=== PATIENT | male | born 1950 | race Caucasian/White ===

== ENCOUNTER 2019-08-07 05:14 | Inpatient (IN) | payer MEDICARE ==
[~2019-08-07] VITALS: Ht 162.6 cm; Wt 83.6 kg
[2019-08-07] MEDS ORDERED: ASPI-496 PO (06:07)
[2019-08-07] MEDS ORDERED: LISI-167 PO (06:07)
[2019-08-07] MEDS ORDERED: ATOR40TA78 PO (06:07)
[2019-08-07] MEDS ORDERED: GABA600T7 PO (06:07)
[2019-08-07] MEDS ORDERED: DIAZ10TA4 PO (06:07)
[2019-08-07] MEDS ORDERED: LACTATED RINGERS 1,000 ML IV SCH (06:10)
[2019-08-07] MEDS ORDERED: NITR0.3T5 SL (06:12)
[2019-08-07] MEDS ORDERED: BUPIVACAINE/EPI 0.5% 1:200K ONE (06:34)
[2019-08-07] MEDS ORDERED: THROMBIN 5,000 UNIT VIAL TP ONE (06:35)
[2019-08-07] MEDS ORDERED: BACITRACIN 50,000 UNIT ONE (06:35)
[2019-08-07] MEDS ORDERED: BACITRACIN ZINC OINT 500U/GM, 0.9 GM ONE (06:35)
[2019-08-07 06:42] VITALS: BP 118/76
[2019-08-07] MEDS ORDERED: CYCL-259 PO (07:05)
[2019-08-07] MEDS ORDERED: TAMS-11 PO (07:05)
[2019-08-07] MEDS ORDERED: SILD20TA PO (07:05)
[2019-08-07] MEDS ORDERED: FINA5TAB4 PO (07:05)
[2019-08-07] MEDS ORDERED: FENTANYL PF 250 MCG/5ML ONE (07:08)
[2019-08-07] MEDS ORDERED: MIDAZOLAM 1 MG/ML, 2ML ONE (07:08)
[2019-08-07] MEDS ORDERED: PROPOFOL 10 MG/ML, 20ML ONE ×2 (07:08→09:48)
[2019-08-07] MEDS ORDERED: LIDOCAINE-MPF 2% ,5ML ONE (07:09)
[2019-08-07] MEDS ORDERED: SUCCINYLCHOLINE 20 MG/ML, 10ML ONE (07:09)
[2019-08-07] MEDS ORDERED: ROCURONIUM 10MG/ML,5ML ONE (07:09)
[2019-08-07] MEDS ORDERED: ONDANSETRON 2MG/ML, 2ML ONE (07:09)
[2019-08-07] MEDS ORDERED: CEFAZOLIN 1,000 MG ONE (07:09)
[2019-08-07] MEDS ORDERED: DEXAMETHASONE 4 MG/ML, 1ML ONE ×2 (07:09)
[2019-08-07] MEDS ORDERED: PHENYLEPHRINE 10 MG/ML ONE (07:09)
[2019-08-07] MEDS ORDERED: PROPOFOL 50 ML ONE ×3 (07:11→08:56)
[2019-08-07] MEDS ORDERED: KETAMINE 10 MG/ML, 20ML ONE (07:28)
[2019-08-07] MEDS ORDERED: ACETAMINOPHEN 500 MG TABLET PO ONE (07:30)
[2019-08-07] MEDS ORDERED: OXYcodone IR 5MG TABLET PO ONE (07:30)
[2019-08-07] MEDS ORDERED: GABAPENTIN 300 MG CAPSULE PO ONE (07:30)
[2019-08-07] MEDS ORDERED: VANCOMYCIN 1,000 MG ONE (08:26)
[2019-08-07] MEDS ORDERED: FENTANYL PF 100 MCG/2ML ONE (10:46)
[2019-08-07] MEDS ORDERED: OXYcodone 5 MG/5 ML ORAL.SOL UDC ONE ×2 (10:46→11:33)
[2019-08-07] MEDS: OXYcodone 5 MG/5 ML ORAL.SOL UDC PO PRN ×2 (10:48→11:34)
[2019-08-07] MEDS: FENTANYL PF 100 MCG/2ML IV PRN ×2 (10:50→10:57)
[2019-08-07] MEDS ORDERED: LORazepam 2 MG/ML, 1ML IVPush PRN (11:00)
[2019-08-07] MEDS ORDERED: METOCLOPRAMIDE 5 MG/ML, 2ML IV PRN (11:00)
[2019-08-07] MEDS ORDERED: LABETALOL 5MG/ML, 20ML IV PRN (11:00)
[2019-08-07] MEDS ORDERED: ONDANSETRON 2MG/ML, 2ML IV PRN ×2 (11:00→13:00)
[2019-08-07] MEDS ORDERED: MEPERIDINE/PF 25MG/ML,1ML IVPush PRN (11:00)
[2019-08-07] MEDS ORDERED: hydrALAzine 20 MG/ML, 1ML IV PRN (11:00)
[2019-08-07] MEDS ORDERED: HYDROmorphone 2 MG/ML, 1ML IVPush PRN (11:00)
[2019-08-07] MEDS ORDERED: METHOCARBAMOL 1,000 MG in DEXTROSE 5% 100 ML IV ONE (11:00)
[2019-08-07] MEDS ORDERED: METOCLOPRAMIDE 5 MG/ML, 2ML ONE (11:03)
[2019-08-07] MEDS ORDERED: BISACODYL 10 MG SUPP PR PRN (13:00)
[2019-08-07] MEDS ORDERED: HYDROcodone/APAP 10/325 MG TABLET PO PRN (13:00)
[2019-08-07] MEDS ORDERED: DIPHENHYDRAMINE 50 MG/ML, 1ML IM PRN (13:00)
[2019-08-07] MEDS ORDERED: ACETAMINOPHEN 325 MG TABLET PO PRN (13:00)
[2019-08-07] MEDS ORDERED: METHOCARBAMOL 750 MG TABLET PO PRN (13:00)
[2019-08-07] MEDS ORDERED: MORPHINE SULFATE 4 MG/ML, 1ML IV PRN (13:00)
[2019-08-07] MEDS ORDERED: PROMETHAZINE 25 MG/ML, 1ML IM PRN (13:00)
[2019-08-07] MEDS ORDERED: ACETAMINOPHEN 650 MG SUPP PR PRN (13:00)
[2019-08-07] MEDS ORDERED: MAGNESIUM HYDROXIDE 8%, 30ML UDC PO PRN (13:00)
[2019-08-07] MEDS ORDERED: DIPHENHYDRAMINE 25 MG CAPSULE PO PRN (13:00)
[2019-08-07 13:32] VITALS: BP 144/89
[2019-08-07] MEDS ORDERED: CYCLOBENZAPRINE 10 MG TABLET PO PRN (15:30)
[2019-08-07] MEDS: OXYcodone/APAP 5/325MG TABLET PO PRN ×3 (15:55→19:39)
[2019-08-07] MEDS: CEFAZOLIN PMX 2GM/50ML 50 ML IVPB SCH (16:54)
[2019-08-07] MEDS: METHOCARBAMOL 750 MG in DEXTROSE 5% 100 ML IV SCH (19:39)
[2019-08-07 20:15] VITALS: BP 122/67
[2019-08-07] MEDS ORDERED: ATORVASTATIN 40 MG TABLET PO SCH (21:00)
[2019-08-08 00:08] VITALS: BP 126/73
[2019-08-08] MEDS: CEFAZOLIN PMX 2GM/50ML 50 ML IVPB SCH ×2 (00:59→09:16)
[2019-08-08] MEDS: OXYcodone/APAP 5/325MG TABLET PO PRN ×3 (01:05→09:16)
[2019-08-08] MEDS: METHOCARBAMOL 750 MG in DEXTROSE 5% 100 ML IV SCH ×2 (03:19→11:00)
[2019-08-08 04:00] VITALS: BP 111/70
[2019-08-08] MEDS ORDERED: TAMSULOSIN 0.4 MG CAP.ER.24H PO SCH (09:00)
[2019-08-08] MEDS ORDERED: LISINOPRIL 10 MG TABLET PO SCH (09:00)
[2019-08-08] MEDS ORDERED: FINASTERIDE 5 MG TABLET PO SCH (09:00)
[2019-08-08] MEDS ORDERED: SENNA/DOCUSATE TABLET PO SCH (09:00)
[2019-08-08] MEDS ORDERED: GABAPENTIN 300 MG CAPSULE PO SCH (09:00)
[2019-08-08] MEDS ORDERED: MAGNESIUM HYDROXIDE 8%, 30ML UDC PO ONE (10:30)
[2019-08-08] MEDS ORDERED: OXYC-302 PO (11:12)
[2019-08-08 11:34] VITALS: BP 125/65
[2019-08-09] MEDS ORDERED: METHOCARBAMOL 750 MG TABLET PO SCH (19:00)
== END 2019-08-08 12:57 | disposition home or self-care (01) | DRG 472 ==
LOC: ORIP 05:14 → 4NE 12:27 → DCLOUNGE 08-08 12:42
PROVIDERS: ADMIT Neurological Surgery; ATTEND Neurological Surgery
PROC: 01N10ZZ Release Cervical Nerve, Open Approach (ICD-10-PCS; 2019-08-07)
PROC: 4A11X4G Monitoring of Peripheral Nervous Electrical Activity, Intraoperative, External Approach (ICD-10-PCS; 2019-08-07)
PROC: 0RG2071 Fusion of 2 or more Cervical Vertebral Joints with Autologous Tissue Substitute, Posterior Approach, Posterior Column, Open Approach (ICD-10-PCS; principal; 2019-08-07 07:30)
DX: M48.02 Spinal stenosis, cervical region (principal); G99.2 Myelopathy in diseases classified elsewhere; M75.101 Unspecified rotator cuff tear or rupture of right shoulder, not specified as traumatic; I10 Essential (primary) hypertension; F41.9 Anxiety disorder, unspecified; E78.5 Hyperlipidemia, unspecified; I25.2 Old myocardial infarction
CPT/HCPCS: 36415; 72040; 86850; 86900; C1713; G0378; J0690; J1100; J2250; J2405; J2704; J3010; J3370; C1762; J0330; J2370; J2765; J2800; J7120

== ENCOUNTER 2019-10-18 08:09 | Day surgery (SDC) | payer MEDICARE ==
[~2019-10-18] VITALS: Ht 162.6 cm; Wt 76.3 kg
[~2019-10-18 08:09] MED LIST: ASPI-496 PO; ATOR40TA78 PO; BUPIVACAINE/PF-EPI 0.25% 1:200K ONE; CYCL-259 PO; DIAZ10TA4 PO; FINA5TAB4 PO; GABA600T7 PO; LISI-167 PO; NITR0.3T5 SL; OXYC-302 PO; SILD20TA PO; TAMS-11 PO
[2019-10-18 08:43] VITALS: BP 105/68
[2019-10-18] MEDS ORDERED: PREG75CA PO (08:52)
[2019-10-18] MEDS ORDERED: ASPIRIN PO (08:52)
[2019-10-18] MEDS ORDERED: LACTATED RINGERS 1,000 ML IV SCH (08:56)
[2019-10-18] MEDS ORDERED: ACETAMINOPHEN 500 MG TABLET PO ONE (09:00)
[2019-10-18] MEDS ORDERED: FENTANYL PF 250 MCG/5ML ONE (09:05)
[2019-10-18] MEDS ORDERED: ROPIvacaine/PF 0.2%, 20 ML ONE (09:07)
[2019-10-18] MEDS ORDERED: KETOROLAC 30 MG/1 ML ONE (09:08)
[2019-10-18] MEDS ORDERED: ROCURONIUM 10MG/ML,5ML ONE (09:09)
[2019-10-18] MEDS ORDERED: CEFAZOLIN 1,000 MG ONE (09:09)
[2019-10-18] MEDS ORDERED: NEOSTIGMINE 1 MG/ML, 10ML ONE (09:09)
[2019-10-18] MEDS ORDERED: PROPOFOL 10 MG/ML, 20ML ONE (09:09)
[2019-10-18] MEDS ORDERED: GLYCOPYRROLATE 0.2MG/1ML, 5ML ONE (09:09)
[2019-10-18 09:36] LABS: ALANINE AMINOTRANSFERASE 22 U/L (12-78); ALBUMIN 3.7 g/dL (3.4-5.0); ANION GAP 6 mmol/L (5-15); CALCIUM 8.5 mg/dL (8.5-10.1); CHLORIDE 110 mmol/L (98-107); CREATININE 1.16 mg/dL (0.7-1.3)
[2019-10-18 09:39] LABS: ALKALINE PHOSPHATASE 88 U/L (45-117); BILIRUBIN,TOTAL 0.6 mg/dL (0.2-1.0); TOTAL PROTEIN 7.2 g/dL (6.4-8.2)
[2019-10-18] MEDS ORDERED: BUPIVACAINE/PF-EPI 0.25% 1:200K ONE (09:50)
[2019-10-18] MEDS ORDERED: PHENYLEPHRINE 10 MG/ML ONE (10:14)
[2019-10-18] MEDS ORDERED: SUGAMMADEX 200 MG/2 ML IVPush ONE (10:14)
[2019-10-18] MEDS ORDERED: MEPERIDINE/PF 25MG/ML,1ML IVPush PRN (10:30)
[2019-10-18] MEDS ORDERED: ONDANSETRON 2MG/ML, 2ML IV PRN (10:30)
[2019-10-18] MEDS ORDERED: LABETALOL 5MG/ML, 20ML IV PRN (10:30)
[2019-10-18] MEDS ORDERED: hydrALAzine 20 MG/ML, 1ML IV PRN (10:30)
[2019-10-18] MEDS ORDERED: OXYcodone 5 MG/5 ML ORAL.SOL UDC PO PRN (10:30)
[2019-10-18] MEDS ORDERED: MORPHINE SULFATE 4 MG/ML, 1ML IVPush PRN (10:30)
[2019-10-18] MEDS ORDERED: FENTANYL PF 100 MCG/2ML IV PRN (10:30)
[2019-10-18] MEDS ORDERED: HYDROmorphone 2 MG/ML, 1ML IVPush PRN (10:30)
[2019-10-18] MEDS ORDERED: EPHEDRINE 50 MG/ML, 1ML ONE (10:41)
[2019-10-18] MEDS ORDERED: VASOPRESSIN 20 UNIT/ML, 1ML ONE (10:49)
== END 2019-10-18 14:15 | disposition home or self-care (01) ==
LOC: OUT 08:09
PROVIDERS: ATTEND Orthopaedic Surgery
DX: M75.121 Complete rotator cuff tear or rupture of right shoulder, not specified as traumatic (principal); M75.41 Impingement syndrome of right shoulder; M19.011 Primary osteoarthritis, right shoulder; S46.211A Strain of muscle, fascia and tendon of other parts of biceps, right arm, initial encounter; S43.431A Superior glenoid labrum lesion of right shoulder, initial encounter; M75.01 Adhesive capsulitis of right shoulder; I25.10 Atherosclerotic heart disease of native coronary artery without angina pectoris; E78.5 Hyperlipidemia, unspecified; I10 Essential (primary) hypertension; Z79.899 Other long term (current) drug therapy; Z87.891 Personal history of nicotine dependence; X58.XXXA Exposure to other specified factors, initial encounter; Y93.89 Activity, other specified; Y92.89 Other specified places as the place of occurrence of the external cause; Y99.8 Other external cause status
CPT/HCPCS: 29823; 29824; 29826; 29827; 29828; 36415; 80053; 93005; C1713; J0690; J1885; J2370; J2704; J2710; J2795; J3010; J7120